=== PATIENT | male | born 1980 | race Hispanic/Latino ===

== ENCOUNTER 2017-04-23 12:53 | Emergency (ER) | payer SELFPAY ==
[~2017-04-23] VITALS: Ht 188 cm; Wt 117.9 kg
[2017-04-23 13:00] VITALS: BP 140/97
--- NOTE | 2017-04-23 14:18 | RADIOLOGY REPORT ---
EXAMINATION: XR FINGER, RIGHT CLINICAL INFORMATION: Cut finger with chain COMPARISON: None TECHNIQUE: Frontal view of the right hand. 2 views of the right third finger. FINDINGS: There is a soft tissue abnormality with surrounding dressing involving the distal aspect of the third digit. There is no acute fracture. No suspicious focal bony lesion. No opaque foreign body. IMPRESSION: Soft tissue injury. No fracture or subluxation.
--- NOTE | 2017-04-23 15:29 | ED HAND/WRIST INJURY COMPLAINT ---
See Addendum History of Present Illness General Chief Complaint: Laceration Procedure Stated Complaint: RT FINGER LAC Source: patient Exam Limitations: no limitations Vital Signs & Intake/Output Vital Signs & Intake/Output Vital Signs Date Time Temp Pulse Resp B/P B/P Pulse O2 O2 Flow FiO2 Mean Ox Delivery Rate 04/23 1300 98.2 100 18 140/97 98 Room Air Allergies Coded Allergies: No Known Allergies (04/23/17) Triage Note: 37 YO MALE TO TRIAGE WITH LACERATION TO MIDDLE FINGER ON R HAND FROM CHAIN SAW. BLEEDING IN TRIAGE, PRESSURE DRESSING APPLIED. UNSURE OF LAST TETANUS. Triage Nurses Notes Reviewed? yes Occurred: just prior to arrival Duration: minute(s): Timing: single episode today Injury Environment: home Severity: moderate, severe Pain/Injury Location: Right: 2nd finger. Method of Injury: laceration No Modifying Factors: none HPI: 37-year-old male comes into the emergency room for further evaluation of laceration to right second finger. Some associated bleeding. Denies any numbness and tingling. Patient reports that he cut it on a chainsaw. Last tetanus shot unknown. Sharp stabbing pain. She comes in for further evaluation. (Ronny Tomlin) Past History Travel History Traveled to [place] past 21 day No Medical History Any Pertinent Medical History? see below for history Neurological: NONE EENT: NONE Cardiovascular: NONE Respiratory: NONE Gastrointestinal: NONE Hepatic: NONE Renal: NONE Musculoskeletal: NONE Psychiatric: NONE Endocrine: NONE Blood Disorders: NONE Cancer(s): NONE Surgical History Surgical History: non-contributory Psychosocial History What is your primary language Mongolian Tobacco Use: Never used Family History Hx Contributory? No (Ronny Tomlin) Review of Systems Review of Systems Constitutional: Reports: no symptoms. EENTM: Reports: no symptoms. Respiratory: Reports: no symptoms. Cardiovascular: Reports: no symptoms. GI: Reports: no symptoms. Genitourinary: Reports: no symptoms. Musculoskeletal: Reports: no symptoms. Skin: Reports: see HPI. Neurological/Psychological: Reports: no symptoms. Hematologic/Endocrine: Reports: no symptoms. Immunologic/Allergic: Reports: no symptoms. All Other Systems: Reviewed and Negative (Ronny Tomlin) Physical Exam Physical Exam General Appearance: well developed/nourished, mild distress Head: atraumatic Eyes: Bilateral: PERRL, EOMI. Ears, Nose, Throat: normal pharynx, normal ENT inspection, hearing grossly normal Neck: normal inspection, supple Cardiovascular/Respiratory: normal breath sounds, regular rate/rhythm Back: normal inspection Hand Left: normal inspection Hand Right: 2nd finger, 1.5 CM LACERATION Neurologic/Tendon: normal sensation, normal motor functions, normal tendon functions, responds to pain, no evidence tendon injury, no pulse deficit Skin: intact, normal color, warm/dry (Ronny Tomlin) Progress Differential Diagnosis: fracture, TENDON LACERATION, SOFT TISSUE FOREIGN BODY (Ronny Tomlin) Differential Diagnosis: wound laceration Plan of Care: wound laceration repair (Anderson SAUER,Donnie) Departure Departure Disposition: HOME OR SELF CARE Condition: Stable Clinical Impression Primary Impression: Finger laceration Referrals: Patient Has No Primary Care Dr (PCP/Family) Departure Forms: Customer Survey General Discharge Information (Ronny Tomlin) Departure Additional Instructions: Return in 3 days for a wound check. Return sooner if any redness or discharge fever chills. Please go over all results of today's visit with your primary care doctor. Contact your primary care doctor to let them know you were here in the emergency room. There may be nonspecific findings which may not be related to your visit today here in the emergency room but may require further evaluation and chronic monitoring by your primary care doctor. If you had a laceration today the chance of foreign body always remains. You should follow-up with your primary care doctor for recheck in 3-5 days for a wound check. If you had an x-ray done there is a chance that a fracture could have been missed on initial read and you should follow-up with your primary care doctor for repeat x-rays if symptoms persist. If your blood pressure was elevated here in the emergency room please have rechecked by your primary care doctor within the next 48. If you were prescribed a narcotic here in the emergency room or any type of controlled substances you're not allowed to drive while taking this medication or operate any type of heavy machinery. Narcotics can make you feel lightheaded dizziness nausea and can cause constipation. You may need to picking tech a stool softener. Thank you for choosing [facility] emergency room. Please return to the emergency room immediately if you have any other concerns worsening of symptoms. (Donnie Barron MD) Procedures Laceration/Wound Repair Progress: Performed by resident with my supervision (Ronny Tomlin) Laceration/Wound Repair Laceration/Wound Repair: Wound Location: upper extremity Wound's Depth, Shape: flap Wound Length (cm): 4 Wound Explored: irrigated extensively Irrigated w/ Saline (ccs): 100 Betadine Prep? Yes Anesthesia: 1% lidocaine Wound Debrided: minimal Wound Repaired With: sutures Suture Size/Type: 5:0 Number of Sutures: 6 (Donnie Barron MD)
== END 2017-04-23 16:34 ==
LOC: ERH 12:53
DX: S61.210A Laceration without foreign body of right index finger without damage to nail, initial encounter (principal); W29.3XXA Contact with powered garden and outdoor hand tools and machinery, initial encounter; Y93.9 Activity, unspecified; Y92.009 Unspecified place in unspecified non-institutional (private) residence as the place of occurrence of the external cause
CPT/HCPCS: 73140-RT; 90471; 90714